=== PATIENT | male | born 1965 | race Caucasian/White ===

== ENCOUNTER → 2017-08-02 | Outpatient (CLI) | payer OTHER ==
[2017-08-02 14:22] LABS: ALT/SGPT 37 U/L (12-78); AST/SGOT 24 U/L (15-37); BLOOD UREA NITROGEN 11 mg/dl (7-18); BUN/CREATININE RATIO 9.6 (10-20); C-REACTIVE PROTEIN 0.34 mg/dl (0-0.29); CALCIUM 9.3 mg/dl (8.5-10.1); CARBON DIOXIDE 27 mmol/L (21-32); CHLORIDE 105 mmol/L (98-107); CHOLESTEROL 217 mg/dl (0-200); GLUCOSE 104 mg/dl (70-99); MAGNESIUM 2.4 mg/dl (1.8-2.4); POTASSIUM 3.8 mmol/L (3.5-5.1); SODIUM 138 mmol/L (136-145)
[2017-08-02 14:26] LABS: ALKALINE PHOSPHATASE 113 U/L (45-117); CHOLESTEROL/HDL RATIO 3.9; HDL CHOLESTEROL 56 mg/dl; LDL CHOLESTEROL CALCULATED 137 mg/dl; RHEUMATOID FACTOR < 10.0 U/mL (0-15); TRIGLYCERIDES 122 mg/dl (0-150); VERY LOW DENSITY LIPOPROT CALC 24 mg/dl
[2017-08-08 10:12] LABS: ANA TITER 1:40 TITER (<1:40)
== END | disposition home or self-care (01) ==
LOC: C.LABBC 10:46
PROVIDERS: ATTEND Nurse Practitioner Adult Health
DX: M25.50 Pain in unspecified joint (principal)